=== PATIENT | male | born 1950 | race Caucasian/White ===

== ENCOUNTER 2016-10-29 18:28 | Emergency (ER) | payer MEDICARE, BC ==
--- NOTE | ~2016-10-29 | CR116 ---
[facility]. [facility] A Service of [facility] [place] RADIOLOGY TEXT RESULTS PATIENT: DHAVAL BRAR LOCATION: SED : 50 UNIT #: [id number] AGE: [address]: Sultana Solis APRN SEX: M ORDER DR: [id number] [place] [id number] E MR#: [id number] Acc #: [id number] NAME: DHAVAL BRAR. : 1950 SEX: M STUDY DATE/TIME: 10/29/2016 18:26 UNIT: SED ROOM: STUDY DESCRIPTION: CR Finger 2 View Thumb Lt Attending Physician: Sultana Solis A.P.R.N. Ordering Physician: Sultana Solis A.P.R.N. Primary Care Physician: Calista Stanton M.D. MEDICAL IMAGING REPORT This report is preliminary unless electronic signature is present. EXAM Left thumb, 3 views. DATE OF EXAM 10/29/2016 HISTORY Left thumb pain and laceration lateral side, smashed thumb with a hammer 1-1/2 hours ago. FINDINGS 3 views of the left thumb demonstrate no fracture. The bones are normally mineralized. There is soft tissue swelling about the left thumb. No foreign body is seen. IMPRESSION Soft tissue swelling about the left thumb. No evidence of fracture or radiopaque foreign body. Dictated by... Sivakumar Simmons M.D. THIS IS AN ELECTRONICALLY VERIFIED REPORT Sivakumar Simmons M.D. at 10/30/2016 3:17 PM BENNIE/norbert TD: 10/29/2016 22:25 JOB #: [id number] MEDICAL IMAGING REPORT Page 1 of 1
[~2016-10-29 18:28] MED LIST: AMOXICILLIN500 M1; AMPICILLIN PO; ANTIVERT PO; ATIVAN PO; CLARITHROMYCIN; DIAZEPAM PO; KEFLEX PO; KEFLEX500 M1 PO; LIPITOR; LORTAB 10-3251 EACH PO; PREDNISONE PO; PREVPAC PA1 COMB.PKG PO; PROTONIX; ROBAXIN500 MG PO; VALIUM2 MG PO; VICODIN 5/500 T1 TAB PO; ZANTAC PO; ZANTAC150 MG PO; ZYRTEC PO
== END 2016-10-29 19:33 | disposition home or self-care (01) ==
LOC: SED 18:28
DX: S60.512A Abrasion of left hand, initial encounter (principal); K21.9 Gastro-esophageal reflux disease without esophagitis; W22.8XXA Striking against or struck by other objects, initial encounter; Y92.009 Unspecified place in unspecified non-institutional (private) residence as the place of occurrence of the external cause
CPT/HCPCS: 29125; 73140; 99283

== ENCOUNTER → 2017-02-02 | Outpatient (CLI) | payer MEDICARE, BC ==
--- NOTE | ~2017-02-02 | CT2 ---
[facility] A Service of [facility] RADIOLOGY TEXT RESULTS PATIENT: DHAVAL BRAR LOCATION: [facility] : 50 UNIT #: [id number] AGE: [address]: Dashawn Rojas MD SEX: M ORDER DR: [id number] [facility] [address] [facility] [facility] [place], [place] [address] [id number] O MR#: [id number] Acc #: [id number] NAME: DHAVAL BRAR : 1950 SEX: M STUDY DATE/TIME: 02/02/2017 13:24 UNIT: CCAT ROOM: STUDY DESCRIPTION: CT Abd and Pelv W Cont Attending Physician: Dashawn Rojas M.D. Referring Physician: Dashawn Rojas M.D. Ordering Physician: Dashawn Rojas M.D. Primary Care Physician: Calista Stanton M.D. MEDICAL IMAGING REPORT This report is preliminary unless electronic signature is present EXAM CT abdomen and pelvis INDICATIONS Epigastric abdominal pain for 6-[address] abdomen and pelvis with p.o. and IV contrast. Coronal and sagittal reconstructions were obtained. This CT exam was performed with one or more of the following radiation dose reduction techniques: automatic exposure control, adjustment of mA and/or kV according to patient size, and iterative reconstruction. COMPARISON CT abdomen and pelvis dated 04/08/2013. FINDINGS Abdomen: There are multiple cysts in the liver. There is no intrahepatic or extrahepatic biliary dilatation. Gallbladder is surgically absent. The pancreas, spleen, adrenal glands, and kidneys are within normal limits. The bowel is not dilated. No enlarged retroperitoneal or mesenteric lymph nodes. The abdominal aorta is normal in caliber. There is occasional colonic diverticula. Pelvis: There is a small indirect left inguinal hernia containing pelvic fat and a small amount of the sigmoid colon. Bladder is unremarkable. No enlarged pelvic or inguinal lymph nodes. No acute osseous abnormalities. [facility] A Service of [facility] RADIOLOGY TEXT RESULTS PATIENT: DHAVAL BRAR LOCATION: [facility] : 50 UNIT #: [id number] AGE: [address]: Dashawn Rojas MD SEX: M ORDER DR: IMPRESSION 1. No acute findings of the abdomen and pelvis. 2. Small left inguinal hernia containing a portion of sigmoid colon. Dictated by... Dequan Pedro M.D. THIS IS AN ELECTRONICALLY VERIFIED REPORT Dequan Pedro M.D. at 02/03/2017 2:50 PM MADISON/isreal TD: 02/02/2017 20:06 JOB #: [id number] MEDICAL IMAGING REPORT Page 1 of 1 COPY
[2017-02-02 14:56] LABS: POC - CREATININE 1.06 mg/dL (0.64-1.27); POC - GFR >60.0 mL/min (>60)
== END | disposition home or self-care (01) ==
LOC: CCAT 11:54
PROVIDERS: Internal Medicine Gastroenterology
DX: R10.13 Epigastric pain (principal); R63.4 Abnormal weight loss; K40.90 Unilateral inguinal hernia, without obstruction or gangrene, not specified as recurrent
CPT/HCPCS: 74177; 82565; Q9967